=== PATIENT | male | born 1975 | race Caucasian/White ===

== ENCOUNTER 2018-03-04 14:20 | Emergency (ER) | payer SELFPAY ==
[~2018-03-04] VITALS: Ht 170.2 cm; Wt 107.0 kg
[2018-03-04 14:26] VITALS: BP 166/102; PULSE 73; RESP 16; TEMP 97.8; O2SAT 99
[2018-03-04] MEDS ORDERED: IBUP200C (14:39)
[2018-03-04 14:54] LABS: BILIRUBIN, URINE NEG (NEG); BLOOD, URINE LARGE (NEG); GLUCOSE,URINE NEG (NEG); KETONE, URINE NEG (NEG); NITRITE,URINE NEG (NEG); PH, URINE 5.5 (5.0-8.5); URINE COLOR YELLOW (YELLW/STRAW); URINE LEUKOCYTE ESTERASE NEG (NEG)
[2018-03-04 15:07] LABS: SQUAMOUS EPITHELIAL CELL URINE 0-5 /hpf (0-5); WBC, URINE 0-2 /hpf (0-5)
[2018-03-04 15:11] LABS: AUTOMATED NEUTROPHIL # 8.2 TH/MM3 (1.8-7.7); BASOPHIL % 0.4 % (0.0-2.0); EOSINOPHIL % 0.4 % (0.0-4.0); HEMOGLOBIN 15.9 GM/DL (13.0-17.0); LYMPH % 13.9 % (9.0-44.0); LYMPHOCYTE # 1.4 TH/MM3 (1.0-4.8); MEAN CELL VOLUME 85.3 FL (80.0-100.0); MEAN CORPUSCULAR HEMOGLOBIN 29.4 PG (27.0-34.0); MEAN CORPUSCULAR HGB CONC 34.5 % (32.0-36.0); MEAN PLATELET VOLUME 7.4 FL (7.0-11.0); MONO % 2.5 % (0.0-8.0); MONOCYTE # 0.2 TH/MM3 (0-0.9); NEUT % 82.8 % (16.0-70.0); PLATELET COUNT 320 TH/MM3 (150-450); RED CELL DISTRIBUTION WIDTH 12.3 % (11.6-17.2); WHITE BLOOD COUNT 9.9 TH/MM3 (4.0-11.0)
[2018-03-04] MEDS ORDERED: ONDANSETRON ODT 4 MG TAB PO ONE (15:15)
[2018-03-04] MEDS ORDERED: MORPHINE SULFATE 4 MG/ML INJ IV PUSH ONE (15:15)
--- NOTE | 2018-03-04 15:16 | PD ---
HPI Chief Complaint: GI Complaint Time Seen by Provider: 14:39 Travel History International Travel<30 days: No Contact w/Intl Traveler<30days: No Traveled to known affect area: No History of Present Illness HPI 42yo M with no PMH presents to the ED with c/o right sided abdominal pain about an hour ago. Pain is sharp, right abdomen radiating to right groin. Associated with dysuria, worst abdominal pain with urination, nausea and vomiting. Denies any fever, chest pain, sob, diarrhea, focal weakness or numbness. PFSH Past Medical History Medical History: Denies Significant Hx Diminished Hearing: No Influenza Vaccination: No Past Surgical History Surgical History: No Previous Surgery Social History Alcohol Use: Yes Tobacco Use: Yes Allergies-Medications (Allergen,Severity, Reaction): Coded Allergies: No Known Allergies (Unverified , 03/04/18) Reported Meds & Prescriptions Reported Meds & Active Scripts Active Tylenol (Acetaminophen) 325 Mg Tab 650 Mg PO Q6H PRN Reported Ibuprofen 200 Mg Cap 0 Q4H PRN Review of Systems Except as stated in HPI: all other systems reviewed are Neg Physical Exam Narrative GENERAL: 42yo M in moderate distress. SKIN: Focused skin assessment warm/dry. HEAD: Atraumatic. Normocephalic. EYES: Pupils equal and round. No scleral icterus. No injection or drainage. ENT: No nasal bleeding or discharge. Mucous membranes pink and moist. NECK: Trachea midline. No JVD. CARDIOVASCULAR: Regular rate and rhythm. No murmur appreciated. RESPIRATORY: No accessory muscle use. Clear to auscultation. Breath sounds equal bilaterally. GASTROINTESTINAL: Abdomen soft, +TTP right flank, RLQ. Epigastric region. No rebound tenderness or guarding. : No ttp bilateral testicles. MUSCULOSKELETAL: No obvious deformities. No clubbing. No cyanosis. No edema. NEUROLOGICAL: Awake and alert. No obvious cranial nerve deficits. Motor grossly within normal limits. Normal speech. PSYCHIATRIC: Appropriate mood and affect; insight and judgment normal. Data Data Last Documented VS Vital Signs Date Time Temp Pulse Resp B/P (MAP) Pulse Ox O2 Delivery O2 Flow Rate FiO2 03/04/18 17:53 72 18 154/91 (112) 99 03/04/18 16:42 Room Air 03/04/18 14:26 97.8 Orders Orders Urinalysis - C+S If Indicated (03/04/18 14:36) Complete Blood Count With Diff (03/04/18 14:48) Comprehensive Metabolic Panel (03/04/18 14:48) Lipase (03/04/18 14:48) Ct Abd/Pel W Iv Contrast(Rout) (03/04/18 14:48) Morphine Inj (Morphine Inj) (03/04/18 15:15) Ondansetron Odt (Zofran Odt) (03/04/18 15:15) Iohexol 350 Inj (Omnipaque 350 Inj) (03/04/18 16:00) Ed Discharge Order (03/04/18 17:44) Labs Laboratory Tests Test 03/04/18 14:35 03/04/18 15:05 Urine Collection Type CLEAN CATCH Urine Color YELLOW Urine Turbidity SLIGHT Urine pH 5.5 Urine Specific [place] 1.020 Urine Protein NEG mg/dL Urine Glucose (UA) NEG mg/dL Urine Ketones NEG mg/dL Urine Occult Blood LARGE Urine Nitrite NEG Urine Bilirubin NEG Urine Urobilinogen 0.2 MG/DL Urine Leukocyte Esterase NEG Urine RBC 20-24 /hpf Urine WBC 0-2 /hpf Urine Squamous Epithelial Cells 0-5 /hpf Microscopic Urinalysis Comment CULT NOT INDICATED Urine Collection Time 1435 White Blood Count 9.9 TH/MM3 Red Blood Count 5.40 MIL/MM3 Hemoglobin 15.9 GM/DL Hematocrit 46.0 % Mean Corpuscular Volume 85.3 FL Mean Corpuscular Hemoglobin 29.4 PG Mean Corpuscular Hemoglobin Concent 34.5 % Red Cell Distribution Width 12.3 % Platelet Count 320 TH/MM3 Mean Platelet Volume 7.4 FL Neutrophils (%) (Auto) 82.8 % Lymphocytes (%) (Auto) 13.9 % Monocytes (%) (Auto) 2.5 % Eosinophils (%) (Auto) 0.4 % Basophils (%) (Auto) 0.4 % Neutrophils # (Auto) 8.2 TH/MM3 Lymphocytes # (Auto) 1.4 TH/MM3 Monocytes # (Auto) 0.2 TH/MM3 Eosinophils # (Auto) 0.0 TH/MM3 Basophils # (Auto) 0.0 TH/MM3 CBC Comment DIFF FINAL Differential Comment Blood Urea Nitrogen 17 MG/DL Creatinine 1.40 MG/DL Random Glucose 110 MG/DL Total Protein 8.1 GM/DL Albumin 3.9 GM/DL Calcium Level 9.0 MG/DL Alkaline Phosphatase 117 U/L Aspartate Amino Transf (AST/SGOT) 31 U/L Alanine Aminotransferase (ALT/SGPT) 54 U/L Total Bilirubin 0.4 MG/DL Sodium Level 139 MEQ/L Potassium Level 3.9 MEQ/L Chloride Level 104 MEQ/L Carbon Dioxide Level 28.1 MEQ/L Anion Gap 7 MEQ/L Estimat Glomerular Filtration Rate 56 ML/MIN Lipase 244 U/L MDM Medical Decision Making Medical Screen Exam Complete: Yes Emergency Medical Condition: Yes Differential Diagnosis Nephrolithiasis vs. pyelonephritis vs. appendicitis vs. pancreatitis vs. cholecystitis Narrative Course 42yo M with right sided pain radiating to right groin. Labs reviewed, no leukocytosis. H/H normal. Creatinine mildly elevated at 1.40, but has no prior to compare. Lipase normal. UA showed RBC 20-24. Leukocyte negative. Pt given morphine and zofran and feels much better. CT a/p showed scattered hepatic and bilateral renal cysts. No acute intra-abdominal process. I discussed with the radiologist and he said he did not visualized the appendix but there is no signs of inflammation or large tubular structure to suggest appendicitis in the RLQ. Clinically I was thinking more nephrolithiasis. Discussed with patient and gave him the option of observation with serial abdominal exam or return to the ED if symptoms worsen. Patient wants to go home and said he will return if symptoms return. Understands that the appendix was not visualized. Diagnosis Primary Impression: Abdominal pain Qualified Codes: R10.31 - Right lower quadrant pain Patient Instructions: General Instructions Departure Forms: Tests/Procedures Additional Instructions: Please follow up with your primary care physician in 2-3 days. Return to the ED if symptoms worsen. Med/Other Pt SpecificInfo: Prescription(s) given Scripts Acetaminophen (Tylenol) 325 Mg Tab 650 MG PO Q6H Y for PAIN SCALE 1 TO 4, #20 TAB 0 Refills Prov: GlassSheba 03/04/18 Disposition: 01 DISCHARGE HOME Condition: Stable Sheba Glass DO Mar 04, 2018 15:16
[2018-03-04 15:27] LABS: CHLORIDE 104 MEQ/L (98-107); SODIUM (NA) 139 MEQ/L (136-145)
[2018-03-04 15:31] LABS: ALBUMIN 3.9 GM/DL (3.4-5.0); BICARBONATE 28.1 MEQ/L (21.0-32.0); BLOOD UREA NITROGEN 17 MG/DL (7-18); GLUCOSE,RANDOM 110 MG/DL (74-106)
[2018-03-04 15:33] LABS: ALT (GPT) 54 U/L (12-78); AST (GOT) 31 U/L (15-37)
[2018-03-04 15:34] LABS: GLOMERULAR FILTRATION RATE 56 ML/MIN (>89)
[2018-03-04 15:35] LABS: TOTAL BILIRUBIN ADULT 0.4 MG/DL (0.2-1.0); TOTAL PROTEIN 8.1 GM/DL (6.4-8.2)
[2018-03-04 15:36] LABS: ALKALINE PHOSPHATASE 117 U/L (45-117)
[2018-03-04 15:42] VITALS: BP 150/98; PULSE 77; RESP 18; O2SAT 99
[2018-03-04] MEDS ORDERED: IOHEXOL 350 MG/ML 10 ML VIAL (for RAD DIAG) IVCONTRAST ONE (16:00)
--- NOTE | 2018-03-04 16:19 | RADRPT ---
EXAM DATE: 03/04/2018 4:05 PM EDT AGE/SEX: 42 years / Male INDICATIONS: Right lower quadrant pain. CLINICAL DATA: This is the patient's initial encounter. Patient reports that signs and symptoms have been present for 1 day and indicates a pain score of 5/10. MEDICAL/SURGICAL HISTORY: None. None. ORAL CONTRAST: No oral contrast ingested. RADIATION DOSE: 21.39 CTDI (mGy) COMPARISON: No prior [facility] exams available for comparison. TECHNIQUE: Multiple contiguous axial images were obtained through the abdomen and pelvis following b olus infusion of 95 ml Omnipaque 350 (iohexol) nonionic water-soluble contrast as a single exam dos e. No oral contrast ingested. Using automated exposure control and adjustment of the mA and/or kV ac cording to patient size, the radiation dose was kept as low as reasonably achievable to obtain optima l diagnostic quality images. FINDINGS: Lower Lungs: The visualized lower lungs are clear. Liver: Scattered low-density lesions are noted within the liver consistent with hepatic cysts. The la rgest measures 10 mm. There is no dilation of the biliary tree. Spleen: Homogeneous density without enlargement. Pancreas: Unremarkable without mass or calcification. Kidneys: Normal in size and shape. No evidence of mass or hydronephrosis. Scattered bilateral renal cysts are noted with the largest on the right measuring 16 mm. Adrenal Glands: Unremarkable. Aorta: The aorta and proximal iliac vessels are grossly unremarkable without aneurysmal dilation. Bowel/Mesentery: The bowel loops are grossly unremarkable. The cecum and sigmoid colon have a normal configuration. Abdominal Wall: Intact. Retroperitoneum: No evidence of adenopathy in the retrocrural, para-aortic, or deep pelvic regions. Bladder: Contours are smooth. Reproductive Organs: No abnormal masses or calcifications seen. Inguinal: The inguinal region is unremarkable without evidence of adenopathy. Bony Structures: Unremarkable. CONCLUSION: 1. Scattered hepatic and bilateral renal cysts. 2. No acute intra-abdominal process. Electronically signed by: Margarito Hopper MD 03/04/2018 4:18 PM EDT
[2018-03-04 16:42] VITALS: BP 152/100; PULSE 72; RESP 18; O2SAT 99
[2018-03-04] MEDS ORDERED: TYLE325T PO (17:44)
[2018-03-04 17:53] VITALS: BP 154/91
== END 2018-03-04 17:55 | disposition home or self-care (01) ==
LOC: PHED 14:20
DX: R10.31 Right lower quadrant pain (principal); K76.89 Other specified diseases of liver; N28.1 Cyst of kidney, acquired; R30.0 Dysuria; R11.2 Nausea with vomiting, unspecified; Z72.0 Tobacco use
CPT/HCPCS: 74177; 80053; 81001; 83690; 85025; 96374; 99284; J2270; Q9967